=== PATIENT | male | born 2005 | race Caucasian/White ===

== ENCOUNTER 2023-12-02 15:40 | Emergency (ER) | payer BC, SELFPAY ==
[2023-12-02 15:47] VITALS: BP 116/78
--- NOTE | 2023-12-02 15:48 | ED.GENMED ---
History of Present Illness
<Joan Stanton PA-C - Last Filed: 12/02/23 17:53>
General
Chief Complaint: Chest Problem
Source: patient
Exam Limitations: none
Time Seen by Provider: 12/02/23 15:42
Nursing documentation reviewed up to this point in time: agreed with
Travel History
Have you had any contact with someone who has COVID-19?: No
Do you have any symptoms of coronavirus? Fever > 100 degrees, chills, cough, shortness of breath, sore throat, loss of taste or smell, muscle aches, or headache?: No
<Deana Stewart NP - Last Filed: 12/02/23 20:54>
General
Source: family
History of Present Illness
History of Present Illness:
18 yo male with no clinically significant pmhx states at 3 a.m. while trying to go to sleep, he was on his side and developed a sudden sharp pain and tightness left upper chest that lasted 8 minutes. No SOB, n/v, diaphoresis, lightheadedness. States
as he moved his left arm around the chest pain got worse (no radiation to the arm). He fell asleep and has had no further pain.
Mentioned it to parents today and they brought him in.
They say he has history of passing out, pt states last time that happened was 2 years ago on a roller coaster, mom states it was one year ago, they disagree.
He also has lightheadedness if he stands too fast
He also notes frequent times on his watch his resting heart rate is 120.
Pt home from college and parents have made cardiology appointment a month ago for this Saturday for check up w [facility] who saw him previously.
Past History
<Deana Stewart NP - Last Filed: 12/02/23 20:54>
Past History
ED Past Medical History: Psychiatric (ADHD)
Social History
Tobacco: Non-smoker
Alcohol: Occasional
Personal: Single
Living: with family
Employment: Student
Review of Systems
<Joan Stanton PA-C - Last Filed: 12/02/23 17:53>
Review of Systems
All Other Systems: ROS reviewed and negative except as documented in HPI and ROS
<Deana Stewart, [employer] - Last Filed: 12/02/23 20:54>
Review of Systems
Allergies reviewed?: Yes
All Other Systems: ROS reviewed and negative except as documented in HPI and ROS
Respiratory: Denies trouble breathing
Cardiac: Reports chest pain; Denies diaphoresis, palpitations (notes heart rate as high as 120 on watch ) or syncope
ABD/GI: Denies abdominal pain, nausea, vomiting or diarrhea
: Denies dysuria or difficulty voiding
Musculoskeletal: Reports no symptoms
Skin: Reports no symptoms
Neurological: Reports no symptoms
Phy Exam
<Deana Stewart, [employer] [place] - Last Filed: 12/02/23 20:54>
Physical Exam
Physical Exam:
GENERAL: No acute distress. A&Ox3.
CONSTITUTIONAL: Afebrile.
EYES:clear, conjunctivae normal
ENMT: moist mucus membranes, Pharynx nl
RESPIRATORY: Regular respirations, nonlabored, lungs clear.
CARDIOVASCULAR: Regular rate and rhythm, no murmurs, no rubs.
GI: Soft, nontender, normal BS
MUSCULOSKELETAL: Moves with ease. Well perfused.
SKIN: Warm, dry, pink
PSYCH: Normal mood and affect. Well kept, interactive and appropriate
NEUROLOGIC: Awake, alert and oriented. No focal neurological deficits
Course
<Joan Stanton PA-C - Last Filed: 12/02/23 17:53>
Orders/Labs/Results
Orders:
Orders
12/02/23 15:43
EKG [Electrocardiogram (*1)] Urgent
Reason for Study: Chest Pain
EKG- Treatment ONCE
12/02/23 15:54
CR Chest - 2 Views Urgent
Comment:
Reason For Exam: left sided chest pain
12/02/23 15:55
Complete Blood Count/With Diff Urgent
Comprehensive Metabolic Panel Urgent
Troponin I Urgent
Abnormal Lab Results
12/02/23
15:55
MCH 31.6 H pg
(27.0-31.0)
Absolute Monos (auto) 0.8 H 10^3/uL
(0.1-0.6)
Monocytes % 10.9 H %
(1.7-9.3)
Creatinine 1.4 H mg/dL
(0.7-1.3)
Glucose 66 L mg/dl
(70-99)
Total Bilirubin 1.6 H mg/dl
(0.2-1.3)
12/02/23 15:55
12/02/23 15:55
Vital Signs
Initial and Last Documented VS:
Initial Vital Signs
Temp Pulse Resp BP Pulse Ox
98.2 F 92 18 116/78 98
12/02/23 15:47 12/02/23 15:47 12/02/23 15:47 12/02/23 15:47 12/02/23 15:47
Last Documented Vital Signs
Temp Pulse Resp BP Pulse Ox
98.2 F 78 13 120/72 99
12/02/23 15:47 12/02/23 16:45 12/02/23 16:45 12/02/23 16:45 12/02/23 16:45
<Deana Stewart, [employer] - Last Filed: 12/02/23 20:54>
Orders/Labs/Results
Orders:
Orders
12/02/23 15:43
EKG [Electrocardiogram (*1)] Urgent
Reason for Study: Chest Pain
EKG- Treatment ONCE
12/02/23 15:54
CR Chest - 2 Views Urgent
Comment:
Reason For Exam: left sided chest pain
12/02/23 15:55
Complete Blood Count/With Diff Urgent
Comprehensive Metabolic Panel Urgent
Troponin I Urgent
Abnormal Lab Results
12/02/23
15:55
MCH 31.6 H pg
(27.0-31.0)
Absolute Monos (auto) 0.8 H 10^3/uL
(0.1-0.6)
Monocytes % 10.9 H %
(1.7-9.3)
Creatinine 1.4 H mg/dL
(0.7-1.3)
Glucose 66 L mg/dl
(70-99)
Total Bilirubin 1.6 H mg/dl
(0.2-1.3)
12/02/23 15:55
12/02/23 15:55
Vital Signs
Initial and Last Documented VS:
Initial Vital Signs
Temp Pulse Resp BP Pulse Ox
98.2 F 92 18 116/78 98
12/02/23 15:47 12/02/23 15:47 12/02/23 15:47 12/02/23 15:47 12/02/23 15:47
Last Documented Vital Signs
Temp Pulse Resp BP Pulse Ox
98.2 F 78 13 120/72 99
12/02/23 15:47 12/02/23 16:45 12/02/23 16:45 12/02/23 16:45 12/02/23 16:45
Anithalt;Deana Stewart [employer] - Last Filed: 12/02/23 20:54>
MDM/Problems Addressed
MDM/Problems Addressed:
18 yo male with no clinically significant pmhx states at 3 a.m. while trying to go to sleep, he was on his side and developed a sudden sharp pain and tightness left upper chest that lasted 8 minutes. No SOB, n/v, diaphoresis, lightheadedness. States
as he moved his left arm around the chest pain got worse (no radiation to the arm). He fell asleep and has had no further pain.
Mentioned it to parents today and they brought him in.
They say he has history of passing out, pt states last time that happened was 2 years ago on a roller coaster, mom states it was one year ago, they disagree.
He also has lightheadedness if he stands too fast
He also notes frequent times on his watch his resting heart rate is 120.
He had a complete cardiac workup 2 years ago for this and echo was normal 09/15/21 result reviewed
48 hour Holter monitor result 01/2022: 36% sinus tachycardia with mention that he is taking Adderall, very rare PVC's and PACs.
Pt home from [facility] and parents have made cardiology appointment a month ago for this Saturday for check up.
4:45 p.m.
120/72 HR 78
CXR NAD
EKG NSR
CBC normal
CMP: normal
Troponin: normal
Parents reassured. Patient is not concerned.
Stable for discharge
<Joan Stanton PA-C - Last Filed: 12/02/23 17:53>
*Critical Care Note
Total Time (30-74mins, 75-104mins- exclusive of procedures): Not Applicable
ED Attending Note
<Joan Stanton PA-C - Last Filed: 12/02/23 17:53>
-
Portions of this chart may have been created with voice recognition software.� Occasional wrong word or��sound alike� substitutions may have occurred due to the inherent limitations of voice recognition software.
Discharge Plan
Departure
Patient Disposition: Home (Routine Discharge)
Date of Disposition: 12/02/23
Time of Disposition: 16:52
Patient with high blood pressure during this ER visit?: No
Condition: Good
Discharge Problem:
Anterior chest wall pain
Instructions: Chest Pain (DC), Muscle spasms (muscle cramps)
Referrals:
CBC, Cardiology [Other] - Keep scheduled appt
Antony Jeffery MD [Family Provider] -
Activity Restrictions/Additional Instructions:
As we discussed, your workup here today shows nothing worrisome.
You may have had a muscle spasm of the pectoral area.
Rapid heart rate is the most common side effect of Adderall.
Keep your appointment with your outside sales account manager on Saturday.
Avoid strenuous activity until then.
Interventions
Interventions:
*Risk Screen - Suicide Last Done: 12/02/23 15:51
*General Assessment Last Done: 12/02/23 15:51
*Neglect/Abuse Screening Last Done: 12/02/23 15:51
ED- Fall Risk Assessment Last Done: 12/02/23 15:58
*ED COVID-19 Vaccine History Last Done: 12/02/23 15:51
*Nursing Disposition Last Done: 12/02/23 17:13
ED- Cardiac Assessment Last Done: 12/02/23 15:51
ED- Pulmonary Assessment Last Done: 12/02/23 15:51
Discharge Date and Time
Discharge Date/Time: 12/02/23 17:13
Print Language: GIBRALTARIAN
[2023-12-02 15:51] VITALS: BP 131/74; BMI 24.6
[2023-12-02 16:06] LABS: % Basophils 0.7 % (0-2); % Eosinophils 3.3 % (0-6); % Immature Granulocytes 0.3 % (0-0.5); % Lymphocytes 26.4 % (20.5-51.1); % Monocytes 10.9 % (1.7-9.3); % Neutrophils 58.4 % (42.2-75.2); Absolute Basophils 0.1 10^3/uL (0-0.2); Absolute Eosinophils 0.2 10^3/uL (0-0.7); Absolute Lymphocytes 1.8 10^3/uL (1.2-3.4); Absolute Monocytes 0.8 10^3/uL (0.1-0.6); Absolute Neutrophils 4.1 10^3/uL (1.4-6.5); Hematocrit 47.7 % (39.0-52.0); Hemoglobin 17.5 g/dL (13.0-18.0); Mean Corp Hgb Conc. 36.7 g/dL (33.0-37.0); Mean Corpuscular Hgb 31.6 pg (27.0-31.0); Mean Corpuscular Volume 86.1 fL (80.0-94.0); Mean Platelet Volume 9.8 fL (7.4-10.4); Nucleated Red Blood Cells % 0 % (-); Platelet Count 160 10^3/uL (130-400); Red Blood Cell Count 5.54 10^6/uL (4.70-6.10); Red Cell Dist. Width 12.2 % (11.5-14.5)
[2023-12-02 16:23] LABS: ALT (SGPT) 27 U/L (0-50); AST (SGOT) 29 U/L (17-59); Albumin 4.7 g/dl (3.5-5.0); Alkaline Phosphatase 73 U/L (38-126); Blood Urea Nitrogen 13 mg/dl (9-20); Calcium 9.6 mg/dl (8.4-10.2); Carbon Dioxide 28 mmol/L (22-30); Chloride 105 mmol/L (98-107); Estimated Creatinine Clearance 101 ml/min; Glucose 66 mg/dl (70-99); Potassium 4.1 mmol/L (3.5-5.1); Sodium 140 mmol/L (135-145); Total Bilirubin 1.6 mg/dl (0.2-1.3); Total Protein 7.3 g/dl (6.3-8.2); eGFR > 60.00
[2023-12-02 16:32] VITALS: BP 102/76
[2023-12-02 16:34] LABS: Troponin I < 0.012 ng/ml
[2023-12-02 16:45] VITALS: BP 120/72
== END 2023-12-02 17:13 | disposition home or self-care (01) ==
LOC: EMR 15:40
PROVIDERS: EMERGENCY PHYSICIAN Emergency Medicine; FAMILY PHYSICIAN Internal Medicine
DX: R07.89 Other chest pain (principal)
CPT/HCPCS: 99283; 71046; 80053; 84484; 85025; 93005

== ENCOUNTER 2024-07-24 22:18 | Emergency (ER) | payer BC, SELFPAY ==
[2024-07-24 22:22] VITALS: BP 136/81
[2024-07-24 22:56] VITALS: BMI 26.0
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
== END 2024-07-24 23:24 | disposition home or self-care (01) ==
LOC: EMR 22:18
PROVIDERS: EMERGENCY PHYSICIAN Emergency Medicine; FAMILY PHYSICIAN Internal Medicine
DX: S05.92XA Unspecified injury of left eye and orbit, initial encounter (principal); W20.8XXA Other cause of strike by thrown, projected or falling object, initial encounter
CPT/HCPCS: 99283